=== PATIENT | male | born 1985 | race Caucasian/White ===

== ENCOUNTER 2018-09-11 14:20 | Emergency (ER) | payer SELFPAY ==
[2018-09-11] MEDS ORDERED: Sodium Chloride 0.9% 10 ML Syringe FLUSH PRN (15:29)
[2018-09-11] MEDS ORDERED: Sodium Chloride 0.9% 2.5 ML Syringe FLUSH PRN (15:29)
[2018-09-11] MEDS ORDERED: Sodium Chloride 0.9% 1,000 ML IV SCH (15:30)
--- NOTE | 2018-09-11 15:35 | EDM.PDOC ---
ED HPI GENERAL MEDICAL PROBLEM - General Chief Complaint: Neurological Problem Stated Complaint: NUMBNESS ON LT SIDE OF BODY Time Seen by Provider: 09/11/18 15:18 - History of Present Illness INITIAL COMMENTS - FREE TEXT/NARRATIVE: HISTORY AND PHYSICAL: History of present illness: Patient's a 32-year-old white male with no significant past medical history presents with a concern of left hemiparesthesia patient has history of what is described as a syncopal episode 1 week prior when he is playing hockey this was somewhat miss characterized by patient to another physician where the thought was that there was some sort of trauma that led to the syncopal episode and he was being treated as a concussive syndrome patient states that there was no associated trauma prior to the syncopal P in the falling while playing hockey he had a outpatient CT that was reported to be negative and then had a subsequent episode where he had a vision loss on the right side with a profound weakness that required extreme efforts to get his son into the car last night he thought he might just be tired he laid down he presents today with above history and a left hemiparesthesia that has been somewhat off and on over the last week. Patient has had some headache he's had some mild neck soreness he denies any other neurological signs or symptoms denies chest pain palpitations denies drug or alcohol abuse Review of systems: As per history of present illness and below otherwise all systems reviewed and negative. Past medical history: As per history of present illness and as reviewed below otherwise noncontributory. Surgical history: As per history of present illness and as reviewed below otherwise noncontributory. Social history: No reported history of drug or alcohol abuse. Family history: As per history of present illness and as reviewed below otherwise noncontributory. Physical exam: HEENT: Atraumatic, normocephalic, pupils reactive, negative for conjunctival pallor or scleral icterus, mucous membranes moist, throat clear, neck supple, nontender, trachea midline. Lungs: Clear to auscultation, breath sounds equal bilaterally, chest nontender. Heart: S1S2, regular, negative for clicks, rubs, or JVD. Abdomen: Soft, nondistended, nontender. Negative for masses or hepatosplenomegaly. Negative for costovertebral tenderness. Pelvis: Stable nontender. Genitourinary: Deferred. Rectal: Deferred. Extremities: Atraumatic, negative for cords or calf pain. Neurovascular unremarkable. Neuro: Awake, alert, oriented. Cranial nerves II through XII unremarkable. Cerebellum unremarkable. Motor and sensory unremarkable throughout. Exam nonfocal. Diagnostics: CBC CMP troponin PT/INR chest x-ray EKG urine drug screen Therapeutics: IV O2 monitor Impression: 1 left hemiparesthesia #2 history of syncope #3 history of temporary vision loss Definitive disposition and diagnosis as appropriate pending reevaluation and review of above. - Related Data Allergies Allergy/AdvReac Type Severity Reaction Status Date / Time No Known Allergies Allergy Verified 09/11/18 15:46 Home Meds: Home Meds . [No Known Home Meds] 09/11/18 [History] ED ROS GENERAL - Review of Systems Review Of Systems: ROS reveals no pertinent complaints other than HPI. ED EXAM, GENERAL - Physical Exam Exam: See Below (See dictation) Course - Vital Signs Last Recorded V/S: Last Vital Signs Temp 36.4 C 09/11/18 15:46 Pulse 70 09/11/18 15:46 Resp 18 09/11/18 15:46 BP 168/98 H 09/11/18 15:46 Pulse Ox 97 09/11/18 15:46 - Orders/Labs/Meds Orders: Active Orders 24 hr Category Date Time Status Cardiac Monitoring [RC] . DIRECTED Care 09/11/18 15:28 Active EKG Documentation Completion [RC] STAT Care 09/11/18 15:28 Active Sodium Chloride 0.9% [Saline Flush] Med 09/11/18 15:29 Active 10 ml FLUSH ASDIRECTED PRN Sodium Chloride 0.9% [Saline Flush] Med 09/11/18 15:29 Active 2.5 ml FLUSH ASDIRECTED PRN Saline Lock Insert [OM.PC] Stat Oth 09/11/18 15:28 Ordered Medication Orders Sodium Chloride (Saline Flush) 10 ml FLUSH ASDIRECTED PRN PRN Reason: Keep Vein Open Sodium Chloride (Saline Flush) 2.5 ml FLUSH ASDIRECTED PRN PRN Reason: Keep Vein Open Labs: Laboratory Tests 09/11/18 09/11/18 09/11/18 Range/Units 15:36 15:36 15:36 WBC 7.31 (4.0-11.0) K/uL RBC 5.07 (4.50-5.90) M/uL Hgb 16.2 (13.0-17.0) g/dL Hct 46.6 (38.0-50.0) % MCV 91.9 (80.0-98.0) fL MCH 32.0 (27.0-32.0) pg MCHC 34.8 (31.0-37.0) g/dL RDW Std Deviation 42.9 (28.0-62.0) fl RDW Coeff of [place] 13 (11.0-15.0) % Plt Count 198 (150-400) K/uL MPV 9.70 (7.40-12.00) fL Neut % (Auto) 63.0 (48.0-80.0) % Lymph % (Auto) 29.1 (16.0-40.0) % [place] % (Auto) 6.3 (0.0-15.0) % Eos % (Auto) 1.2 (0.0-7.0) % Baso % (Auto) 0.4 (0.0-1.5) % Neut # (Auto) 4.6 (1.4-5.7) K/uL Lymph # (Auto) 2.1 (0.6-2.4) K/uL [place] # (Auto) 0.5 (0.0-0.8) K/uL Eos # (Auto) 0.1 (0.0-0.7) K/uL Baso # (Auto) 0.0 (0.0-0.1) K/uL Nucleated RBC % 0.0 /100WBC Nucleated RBCs # 0 K/uL INR 1.02 Sodium 142 (136-148) mmol/L Potassium 4.2 (3.5-5.1) mmol/L Chloride 107 (98-107) mmol/L Carbon Dioxide 26.5 (21.0-32.0) mmol/L BUN 17 (7.0-18.0) mg/dL Creatinine 1.1 (0.8-1.3) mg/dL Est Cr Clr Drug Dosing 98.19 mL/min Estimated GFR (MDRD) > 60.0 ml/min Glucose 120 H (74-106) mg/dL Calcium 9.7 (8.5-10.1) mg/dL Total Bilirubin 0.5 (0.2-1.0) mg/dL AST 22 (15-37) IU/L ALT 54 (14-63) IU/L Alkaline Phosphatase 49 (46-116) U/L Troponin I < 0.050 (0.000-0.056) ng/mL Total Protein 7.7 (6.4-8.2) g/dL Albumin 4.1 (3.4-5.0) g/dL Globulin 3.6 (2.6-4.0) g/dL Albumin/Globulin Ratio 1.1 (0.9-1.6) Urine Opiates Screen (NEGATIVE) Ur Oxycodone Screen (NEGATIVE) Urine Methadone Screen (NEGATIVE) Ur Barbiturates Screen (NEGATIVE) Ur Phencyclidine Scrn (NEGATIVE) Ur Amphetamine Screen (NEGATIVE) U Methamphetamines Scrn (NEGATIVE) U Benzodiazepines Scrn (NEGATIVE) U Cocaine Metab Screen (NEGATIVE) U Marijuana (THC) Screen (NEGATIVE) 09/11/18 Range/Units 16:23 WBC (4.0-11.0) K/uL RBC (4.50-5.90) M/uL Hgb (13.0-17.0) g/dL Hct (38.0-50.0) % MCV (80.0-98.0) fL MCH (27.0-32.0) pg MCHC (31.0-37.0) g/dL RDW Std Deviation (28.0-62.0) fl RDW Coeff of [place] (11.0-15.0) % Plt Count (150-400) K/uL MPV (7.40-12.00) fL Neut % (Auto) (48.0-80.0) % Lymph % (Auto) (16.0-40.0) % [place] % (Auto) (0.0-15.0) % Eos % (Auto) (0.0-7.0) % Baso % (Auto) (0.0-1.5) % Neut # (Auto) (1.4-5.7) K/uL Lymph # (Auto) (0.6-2.4) K/uL [place] # (Auto) (0.0-0.8) K/uL Eos # (Auto) (0.0-0.7) K/uL Baso # (Auto) (0.0-0.1) K/uL Nucleated RBC % /100WBC Nucleated RBCs # K/uL INR Sodium (136-148) mmol/L Potassium (3.5-5.1) mmol/L Chloride (98-107) mmol/L Carbon Dioxide (21.0-32.0) mmol/L BUN (7.0-18.0) mg/dL Creatinine (0.8-1.3) mg/dL Est Cr Clr Drug Dosing mL/min Estimated GFR (MDRD) ml/min Glucose (74-106) mg/dL Calcium (8.5-10.1) mg/dL Total Bilirubin (0.2-1.0) mg/dL AST (15-37) IU/L ALT (14-63) IU/L Alkaline Phosphatase (46-116) U/L Troponin I (0.000-0.056) ng/mL Total Protein (6.4-8.2) g/dL Albumin (3.4-5.0) g/dL Globulin (2.6-4.0) g/dL Albumin/Globulin Ratio (0.9-1.6) Urine Opiates Screen NEGATIVE (NEGATIVE) Ur Oxycodone Screen NEGATIVE (NEGATIVE) Urine Methadone Screen NEGATIVE (NEGATIVE) Ur Barbiturates Screen NEGATIVE (NEGATIVE) Ur Phencyclidine Scrn NEGATIVE (NEGATIVE) Ur Amphetamine Screen NEGATIVE (NEGATIVE) U Methamphetamines Scrn NEGATIVE (NEGATIVE) U Benzodiazepines Scrn NEGATIVE (NEGATIVE) U Cocaine Metab Screen NEGATIVE (NEGATIVE) U Marijuana (THC) Screen NEGATIVE (NEGATIVE) Meds: Medications Generic Name Dose Route Start Last Admin Trade Name Freq PRN Reason Stop Dose Admin Sodium Chloride 10 ml 09/11/18 15:29 Saline Flush FLUSH ASDIRECTED PRN Keep Vein Open Sodium Chloride 2.5 ml 09/11/18 15:29 Saline Flush FLUSH ASDIRECTED PRN Keep Vein Open Discontinued Medications Generic Name Dose Route Start Last Admin Trade Name Freq PRN Reason Stop Dose Admin Sodium Chloride 1,000 mls @ 125 mls/hr 09/11/18 15:30 Normal Saline IV STAT BALJINDER Departure - Departure Time of Disposition: 16:58 Disposition: DC/Tfer to Acute Hospital 02 Condition: Good Clinical Impression: Paresthesia - Discharge Information Referrals: PCP,None [Primary Care Provider] - Forms: ED Department Discharge - My Orders Last 24 Hours: My Active Orders 09/11/18 15:28 Cardiac Monitoring [RC] . DIRECTED EKG Documentation Completion [RC] STAT Saline Lock Insert [OM.PC] Stat 09/11/18 15:29 Sodium Chloride 0.9% [Saline Flush] 10 ml FLUSH ASDIRECTED PRN Sodium Chloride 0.9% [Saline Flush] 2.5 ml FLUSH ASDIRECTED PRN - Assessment/Plan Last 24 Hours: My Active Orders 09/11/18 15:28 Cardiac Monitoring [RC] . DIRECTED EKG Documentation Completion [RC] STAT Saline Lock Insert [OM.PC] Stat 09/11/18 15:29 Sodium Chloride 0.9% [Saline Flush] 10 ml FLUSH ASDIRECTED PRN Sodium Chloride 0.9% [Saline Flush] 2.5 ml FLUSH ASDIRECTED PRN
--- NOTE | 2018-09-11 16:10 | CR ---
Indication: Pain. Shortness of breath. Left-sided body is numb. Technique: Single AP portable view of the chest was obtained. Comparison: None Findings: The heart is normal in size. The lungs are clear. No infiltrate, pleural effusion, or pneumothorax is identified. Impression: No acute cardiopulmonary process. Dictated by Marixa Adams MD @ Sep 11 2018 4:09PM Signed by Dr. Marixa Adams @ Sep 11 2018 4:09PM
[2018-09-11 16:26] LABS: CHLORIDE,CL 107 mmol/L (98-107); SODIUM,NA 142 mmol/L (136-148)
== END 2018-09-11 17:14 ==
LOC: MW.ED 14:20
DX: R20.2 Paresthesia of skin (principal)
CPT/HCPCS: 36415; 71045; 71045-26; 80053; 80305-QW; 84484; 85025; 85610; 93005; 99284; 99285-25

== ENCOUNTER 2020-12-24 08:56 | Emergency (ER) | payer SELFPAY ==
[2020-12-24] MEDS ORDERED: Sodium Chloride 0.9% 1,000 ML IV ONE (09:18)
--- NOTE | 2020-12-24 09:23 | EDM.PDOC ---
ED HPI GENERAL MEDICAL PROBLEM - General Chief Complaint: Abdominal Pain Stated Complaint: STOMACH PAIN Time Seen by Provider: 12/24/20 09:09 Source of Information: Reports: Patient History Limitations: Reports: No Limitations - History of Present Illness INITIAL COMMENTS - FREE TEXT/NARRATIVE: Patient is a 35-year-old male who presents today for right lower quadrant pain that radiates to his right flank. Pain states the pain woke him up out of sleep around 2 AM. Nothing made the pain better and or worse. Patient did mention that he has some vomiting around 4 AM likely due to the pain. Patient is not eating or drinking anything clear no appetite. Patient has pain is sharp. Patient denies any testicular swelling tenderness or discharge. Patient has no other medical complaints. RLQ Pain Score (Numeric/FACES): 3 - Related Data Allergies Allergy/AdvReac Type Severity Reaction Status Date / Time No Known Allergies Allergy Verified 12/24/20 09:09 Home Meds: Home Meds Aspirin 325 mg PO DAILY 12/24/20 [History] lisinopriL [Lisinopril] 10 mg PO DAILY 12/24/20 [History] Past Medical History - Past Health History Medical/Surgical History: Denies Medical/Surgical History HEENT History: Reports: None Cardiovascular History: Reports: Hypertension Respiratory History: Reports: None Gastrointestinal History: Reports: None Genitourinary History: Reports: Renal Calculus Musculoskeletal History: Reports: None Neurological History: Reports: CVA, Other (See Below) Other Neuro History: Vertebral Artery Dissection Psychiatric History: Reports: None Endocrine/Metabolic History: Reports: None Hematologic History: Reports: None Immunologic History: Reports: None Oncologic (Cancer) History: Reports: None Dermatologic History: Reports: None - Infectious Disease History Infectious Disease History: Reports: Mononucleosis - Past Surgical History Head Surgeries/Procedures: Reports: None HEENT Surgical History: Reports: None Cardiovascular Surgical History: Reports: None Respiratory Surgical History: Reports: None GI Surgical History: Reports: None Male Surgical History: Reports: None Endocrine Surgical History: Reports: None Neurological Surgical History: Reports: None Musculoskeletal Surgical History: Reports: None Oncologic Surgical History: Reports: None Dermatological Surgical History: Reports: None Social & Family History - Family History Family Medical History: No Pertinent Family History - Tobacco Use Tobacco Use Status *Q: Never Tobacco User Second Hand Smoke Exposure: No - Caffeine Use Caffeine Use: Reports: None - Recreational Drug Use Recreational Drug Use: No ED ROS GENERAL - Review of Systems Review Of Systems: See Below Constitutional: Reports: No Symptoms HEENT: Reports: No Symptoms Respiratory: Reports: No Symptoms Cardiovascular: Reports: No Symptoms Endocrine: Reports: No Symptoms GI/Abdominal: Reports: Abdominal Pain : Reports: No Symptoms Musculoskeletal: Reports: No Symptoms Skin: Reports: No Symptoms Neurological: Reports: No Symptoms Psychiatric: Reports: No Symptoms Hematologic/Lymphatic: Reports: No Symptoms Immunologic: Reports: No Symptoms ED EXAM, GI/ABD - Physical Exam Exam: See Below Exam Limited By: No Limitations General Appearance: Alert, WD/WN, No Apparent Distress Respiratory/Chest: No Respiratory Distress, Lungs Clear, Normal Breath Sounds Cardiovascular: Normal Peripheral Pulses, Regular Rate, Rhythm GI/Abdominal Exam: Normal Bowel Sounds, Soft, Non-Tender Extremities: Normal Inspection Neurological: Alert, Oriented, CN II-XII Intact, Normal Cognition, Normal Gait Course - Vital Signs Last Recorded V/S: Last Vital Signs Temp 97.3 F 12/24/20 09:14 Pulse 103 H 12/24/20 09:14 Resp 19 12/24/20 09:14 BP 151/102 H 12/24/20 09:14 Pulse Ox 98 12/24/20 09:14 - Orders/Labs/Meds Labs: Laboratory Tests 12/24/20 12/24/20 12/24/20 Range/Units 09:11 09:16 09:16 WBC 11.79 H (4.0-11.0) K/uL RBC 4.93 (4.50-5.90) M/uL Hgb 15.9 (13.0-17.0) g/dL Hct 46.2 (38.0-50.0) % MCV 93.7 (80.0-98.0) fL MCH 32.3 H (27.0-32.0) pg MCHC 34.4 (31.0-37.0) g/dL RDW Std Deviation 42.4 (28.0-62.0) fl RDW Coeff of [place] 12 (11.0-15.0) % Plt Count 209 (150-400) K/uL MPV 10.40 (7.40-12.00) fL Neut % (Auto) 85.4 H (48.0-80.0) % Lymph % (Auto) 8.6 L (16.0-40.0) % [place] % (Auto) 5.7 (0.0-15.0) % Eos % (Auto) 0.1 (0.0-7.0) % Baso % (Auto) 0.2 (0.0-1.5) % Neut # (Auto) 10.1 H (1.4-5.7) K/uL Lymph # (Auto) 1.0 (0.6-2.4) K/uL [place] # (Auto) 0.7 (0.0-0.8) K/uL Eos # (Auto) 0.0 (0.0-0.7) K/uL Baso # (Auto) 0.0 (0.0-0.1) K/uL Nucleated RBC % 0.0 /100WBC Nucleated RBCs # 0 K/uL Sodium 138 (136-148) mmol/L Potassium 4.8 (3.5-5.1) mmol/L Chloride 101 (98-107) mmol/L Carbon Dioxide 27.4 (21.0-32.0) mmol/L BUN 22 H (7.0-18.0) mg/dL Creatinine 1.2 (0.8-1.3) mg/dL Est Cr Clr Drug Dosing 96.10 mL/min Estimated GFR (MDRD) > 60.0 ml/min Glucose 128 H (74-106) mg/dL Calcium 8.7 (8.5-10.1) mg/dL Magnesium 2.0 (1.8-2.4) mg/dL Total Bilirubin 0.5 (0.2-1.0) mg/dL AST 32 (15-37) IU/L ALT 80 H (14-63) IU/L Alkaline Phosphatase 58 (46-116) U/L Total Protein 8.3 H (6.4-8.2) g/dL Albumin 4.4 (3.4-5.0) g/dL Globulin 3.9 (2.6-4.0) g/dL Albumin/Globulin Ratio 1.1 (0.9-1.6) Lipase 106 (73-393) U/L Urine Color YELLOW Urine Appearance CLEAR Urine pH 6.5 (5.0-8.0) Ur Specific [place] 1.015 (1.001-1.035) Urine Protein NEGATIVE (NEGATIVE) mg/dL Urine Glucose (UA) NEGATIVE (NEGATIVE) mg/dL Urine Ketones NEGATIVE (NEGATIVE) mg/dL Urine Occult Blood MODERATE H (NEGATIVE) Urine Nitrite NEGATIVE (NEGATIVE) Urine Bilirubin NEGATIVE (NEGATIVE) Urine Urobilinogen 0.2 (<2.0) EU/dL Ur Leukocyte Esterase NEGATIVE (NEGATIVE) Urine RBC 5-10 (0-2/HPF) Urine WBC 0-1 (0-5/HPF) Ur Epithelial Cells RARE (NONE-FEW) Urine Bacteria RARE (NEGATIVE) Meds: Medications Discontinued Medications Generic Name Dose Route Start Last Admin Trade Name Freq PRN Reason Stop Dose Admin Sodium Chloride 1,000 mls @ 999 mls/hr 12/24/20 09:18 12/24/20 09:20 Normal Saline IV 12/24/20 10:18 999 mls/hr .BOLUS ONE Administration Ketorolac Tromethamine 15 mg 12/24/20 10:08 Ketorolac 15 Mg/Ml Sdv IVPUSH 12/24/20 10:09 NOW STA - Re-Assessments/Exams Free Text/Narrative Re-Assessment/Exam: 12/24/20 10:23 Patient was told he has a 5 mm kidney stone right. Patient pain is out of control at the moment. Patient UA shows no infection. Patient has seen urology in the past. We will send patient home with pain meds and will instruct patient follow-up with urology if pain is not improved in the next 5 to 7 days. Departure - Departure Time of Disposition: 10:23 Disposition: Home, Self-Care 01 Condition: Good Clinical Impression: Renal colic on right side - Discharge Information *PRESCRIPTION DRUG MONITORING PROGRAM REVIEWED*: Not Applicable *COPY OF PRESCRIPTION DRUG MONITORING REPORT IN PATIENT MINESH: Not Applicable Instructions: Kidney Stones, [id number] Referrals: PCP,None [Primary Care Provider] - Forms: ED Department Discharge Additional Instructions: The following information is given to patients seen in the emergency department who are being discharged to home. This information is to outline your options for follow-up care. We provide all patients seen in our emergency department with a follow-up referral. The need for follow-up, as well as the timing and circumstances, are variable depending upon the specifics of your emergency department visit. If you don't have a primary care physician on staff, we will provide you with a referral. We always advise you to contact your personal physician following an emergency department visit to inform them of the circumstance of the visit and for follow-up with them and/or the need for any referrals to a consulting specialist. The emergency department will also refer you to a specialist when appropriate. This referral assures that you have the opportunity for follow-up care with a specialist. All of these measure are taken in an effort to provide you with optimal care, which includes your follow-up. Under all circumstances we always encourage you to contact your private physician who remains a resource for coordinating your care. When calling for follow-up care, please make the office aware that this follow-up is from your recent emergency room visit. If for any reason you are refused follow-up, please contact the [facility] Emergency Department at and asked to speak to the emergency department charge nurse. Please follow up with your primary care physician. If you do not have a primary care physician, see below: [facility] [address] [place] [id number] [facility] [address] [place] [address] You were seen today for pain to the right side of your abdomen. You were found to have a kidney stone. You follow-up with urology in the past if the pain is not better next 5 to 7 days you may continue to follow-up with your urologist. If you have any difficulty urinating bright red blood in your urine increased pain please return to the ED. Sepsis Event Note (ED) - Evaluation Sepsis Screening Result: No Definite Risk - Focused Exam Vital Signs: Vital Signs Temp Pulse Resp BP Pulse Ox 12/24/20 09:14 97.3 F 103 H 19 151/102 H 98 - Assessment/Plan Plan: Patient is a 35-year-old male who presents today for right lower quadrant pain rating to his right flank. Possible kidney stone will obtain labs CT Noncon and reassess. Patient does not want any pain medicine.
[2020-12-24 09:47] LABS: BLOOD UREA NITROGEN,BUN 22 mg/dL (7.0-18.0); CARBON DIOXIDE,CO2 27.4 mmol/L (21.0-32.0); CHLORIDE,CL 101 mmol/L (98-107); GLUCOSE RANDOM 128 mg/dL (74-106); LIPASE 106 U/L (73-393); POTASSIUM,K 4.8 mmol/L (3.5-5.1); SODIUM,NA 138 mmol/L (136-148)
[2020-12-24] MEDS ORDERED: Ketorolac 15 MG/ML SDV IVPUSH STA (10:08)
--- NOTE | 2020-12-24 10:14 | CT ---
INDICATION: Right lower quadrant/right flank pain brief history kidney stones. TECHNIQUE: Volumetric helical scanning of the abdomen and pelvis was performed without contrast material. Coronal and sagittal reconstructions were obtained. COMPARISON: None. FINDINGS: Acutely obstructing 5 mm mid right ureteral stone is demonstrated at the level of the L5 superior endplate on images 110-112 series 201. Mild right hydroureter and moderate right hydronephrosis is demonstrated along with periureteral and perinephric stranding. Several 1 mm right renal collecting system stones are noted. Renal parenchymal cysts are present bilaterally. The bladder is nearly completely empty. The prostate is unremarkable. Fatty change is demonstrated in the liver. The liver is normal in size and shape. The bile ducts, spleen, adrenal glands and pancreas are within normal limits. No bowel abnormality is apparent. No lymphadenopathy or free fluid is demonstrated. The lung bases are clear, and the heart size is normal. IMPRESSION: 1. Acutely obstructing 5 mm mid right ureteral stone at the level of the L5 superior endplate. 2. Several 1 mm right renal collecting system stones. 3. Fatty liver. Please note that all CT scans at this facility use dose modulation, iterative reconstruction, and/or weight-based dosing when appropriate to reduce radiation dose to as low as reasonably achievable. Dictated by Rohit Herbert MD @ 12/24/2020 10:12:[address] Rohit Herbert @ Dec 24 2020 10:12AM
== END 2020-12-24 11:30 | disposition home or self-care (01) ==
LOC: MW.ED 09:05
DX: N23 Unspecified renal colic (principal); I10 Essential (primary) hypertension; Z79.82 Long term (current) use of aspirin; Z79.899 Other long term (current) drug therapy; Z87.442 Personal history of urinary calculi
CPT/HCPCS: 74176; 80053; 81001; 83690; 83735; 85025; 96374; 99284; J1885; J7030